=== PATIENT | male | born 1970 | race Caucasian/White ===

== ENCOUNTER → 2016-08-10 | Outpatient (CLI) | payer OTHER ==
--- NOTE | 2016-08-11 15:46 | RAD ---
Procedure: XR CHEST 2 VIEWS Exam Date: 08/10/2016 Ordering Provider: Uzair Doty Clinical Indication: RULE OUT TB. R76.11 Comparison: 08/02/2015 Findings: Cardiac silhouette: Normal Pulmonary vasculature : Normal Mediastinal contour: Normal Aortic contour: Normal Focal lung consolidation: None Pleural effusion: None Pneumothorax: None Acute bony or soft tissue abnormality: None No radiographic evidence of tuberculosis. Impression: 1. No acute abnormalities in the chest. Electronically signed by: Ernie Weber MD 08/11/2016 3:44 PM CDT
== END | disposition home or self-care (01) ==
LOC: RAD 15:23
DX: R76.11 Nonspecific reaction to tuberculin skin test without active tuberculosis (principal)

== ENCOUNTER → 2017-08-22 | Outpatient (CLI) | payer OTHER ==
--- NOTE | 2017-08-22 11:31 | RAD ---
EXAM DESCRIPTION: Chest,2 Views CLINICAL HISTORY: 46 years Male, rule out TB COMPARISON: Radiographs of the chest dated 09/09/2016. TECHNIQUE: PA and lateral radiographs of the chest were obtained. FINDINGS: Trachea is midline.The cardiomediastinal silhouette is normal in size. The pulmonary vasculature is within normal limits.The lungs are clear with no acute consolidation.No evidence of pleural effusions.No evidence of pneumothorax. IMPRESSION: No acute cardiopulmonary process. Electronically signed by: Courtney Cortez MD 08/22/2017 11:30 AM CDT
== END ==
LOC: RAD 08:57
DX: Z11.1 Encounter for screening for respiratory tuberculosis (principal)